=== PATIENT | male | born 1975 | race African-American/Black ===

== ENCOUNTER 2024-10-08 17:26 | Emergency (ER) | payer SELFPAY ==
[~2024-10-08] VITALS: Ht 180.3 cm; Wt 73.0 kg
[2024-10-08 17:29] VITALS: O2SAT 96
[2024-10-08] MEDS: DIPHENHYDRAMINE 50MG/ML VIAL IM STA (17:35)
[2024-10-08] MEDS: OLANZAPINE 10 MG/VIAL IM STA (17:35)
[2024-10-08] MEDS: LORAZEPAM 2MG/ML INJ IM ONE (17:45)
[2024-10-08 20:30] LABS: BASOPHILS % 0.5 % (0.0-2.0); HEMATOCRIT. 36.3 % (42.0-52.0); HEMOGLOBIN. 11.6 g/dL (14.0-18.0); LYMPHOCYTES % 14.6 % (20.0-50.0); MEAN CORPUSCULAR HEMOGLOBIN 22.3 pg (28.0-32.0); MEAN CORPUSCULAR VOLUME 69.9 fL (80.0-94.0); MEAN PLATELET VOLUME 7.2 fl (7.4-10.4); MONOCYTES % 14.1 % (2.0-8.0); NEUTROPHILS % 68.8 % (40.0-76.0); PLATELET 342 x1000/uL (130-400); RED CELL DISTRIBUTION WIDTH 15.8 % (11.6-14.6); WHITE BLOOD COUNT 7.1 x1000/uL (4.5-11.0)
[2024-10-08 20:34] LABS: DIFFERENTIAL COMMENT 1
[2024-10-08 20:37] LABS: CHLORIDE 106 mEq/L (98-107); POTASSIUM 3.9 mEq/L (3.5-5.1); SODIUM 142 mEq/L (136-145)
[2024-10-08 20:38] LABS: CALCIUM 9.2 mg/dL (8.7-10.4); CARBON DIOXIDE 25 mEq/L (21-32)
[2024-10-08 20:43] LABS: CREATININE 0.9 mg/dL (0.6-1.3); ETHANOL BLOOD 98 mg/dL (<10); GLUCOSE 83 mg/dL (70-105); UREA NITROGEN BLOOD 11 mg/dL (9-23)
[2024-10-08 20:45] LABS: ACETAMINOPHEN < 2 ug/mL (10-30)
[2024-10-09 08:53] LABS: CLARITY URINE CLEAR (CLEAR); COLOR URINE YELLOW (YELLOW); GLUCOSE URINE NEGATIVE (NEGATIVE); KETONES URINE 1+ (NEGATIVE); LEUKOCYTE ESTERASE URINE NEGATIVE (NEGATIVE); NITRITE URINE NEGATIVE (NEGATIVE); OCCULT BLOOD URINE NEGATIVE (NEGATIVE); PH URINE 6.5 (4.5-8.0); PROTEIN URINE NEGATIVE (NEGATIVE); SPECIFIC GRAVITY URINE 1.016 (1.005-1.030)
[2024-10-09 09:07] LABS: *AMPHETAMINES SCREEN URINE PRESUMPTIVE POSITIVE (NEGATIVE); *BARBITURATES SCREEN URINE NEGATIVE (NEGATIVE); *BENZODIAZEPINES SCREEN URINE PRESUMPTIVE POSITIVE (NEGATIVE); *COCAINE SCREEN URINE NEGATIVE (NEGATIVE)
[2024-10-09 09:08] LABS: CANNABINOID URINE SCREEN PRESUMPTIVE POSITIVE (NEGATIVE); ECSTASY MDMA SCREEN URINE NEGATIVE (NEGATIVE); METHADONE URINE SCREEN NEGATIVE (NEGATIVE); OPIATES URINE SCREEN NEGATIVE (NEGATIVE); PHENCYCLIDINE URINE SCREEN NEGATIVE (NEGATIVE)
[2024-10-09] MEDS: ACETAMINOPHEN 325MG TABLET PO ONE (17:24)
[2024-10-09] MEDS ORDERED: IBUPROFEN 600MG TABLET PO ONE (21:45)
[2024-10-10 00:57] VITALS: BP 141/89; PULSE 73; RESP 18; TEMP 36.8; O2SAT 98
[2024-10-10] MEDS: IBUPROFEN 600MG TABLET PO NR (01:00)
== END 2024-10-10 02:00 ==
LOC: ER 17:26
DX: F22 Delusional disorders (principal); R45.1 Restlessness and agitation; F15.10 Other stimulant abuse, uncomplicated; F31.9 Bipolar disorder, unspecified; Z59.00 Homelessness unspecified
CPT/HCPCS: 80305; 80048; 81003; 80307; 80329; 80320; 85025; 36415; 96372; 99291; 87426; 73030; J3490; J1200; J2060; Z7610 ×2; G0480